=== PATIENT | female | born 1970 | race American Indian/Alaskan Native ===

== ENCOUNTER 2018-01-03 08:12 | Emergency (ER) | payer OTHER ==
[2018-01-03 08:22] VITALS: BP 122/70
[2018-01-03] MEDS ORDERED: ULTRAM PO ONE (09:26)
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
== END 2018-01-03 09:42 | disposition home or self-care (01) ==
LOC: ED 08:12
DX: M54.5 Low back pain (principal); V89.2XXA Person injured in unspecified motor-vehicle accident, traffic, initial encounter; Y93.89 Activity, other specified; Y92.89 Other specified places as the place of occurrence of the external cause; Y99.8 Other external cause status
CPT/HCPCS: 99282

== ENCOUNTER 2020-07-03 13:15 | Outpatient (CLI) | payer OTHER ==
--- NOTE | 2020-07-03 15:41 | XRay Report ---
HISTORY:LEFT SHOULDER PAIN COMPARISON: None. TECHNIQUE: AP lateral and obliques views were obtained FINDINGS: Bones: No fracture or dislocation. 'S of previous open reduction internal fixation distal humeral fra cture Joint spaces: Maintained. Soft tissues: No significant abnormality. Additional findings: None. IMPRESSION: 1. No significant abnormality. Signer Name: Feliciano Rossi MD Signed: 07/03/2020 3:37 PM Workstation Name: [id number]
== END 2020-07-03 13:16 | disposition home or self-care (01) ==
LOC: XRAY 13:15
PROVIDERS: ATTEND Internal Medicine
DX: E05.00 Thyrotoxicosis with diffuse goiter without thyrotoxic crisis or storm (principal); E07.9 Disorder of thyroid, unspecified; M25.512 Pain in left shoulder

== ENCOUNTER 2020-07-15 12:03 | Outpatient (CLI) | payer OTHER | END 2020-07-15 12:04 | disposition home or self-care (01) | LOC: LAB 12:03 | PROVIDERS: ATTEND Internal Medicine | DX: F32.9 Major depressive disorder, single episode, unspecified (principal); E07.9 Disorder of thyroid, unspecified; E05.00 Thyrotoxicosis with diffuse goiter without thyrotoxic crisis or storm; Z98.890 Other specified postprocedural states | CPT/HCPCS: 36415; 84443 ==